=== PATIENT | male | born 2000 | race Caucasian/White ===

== ENCOUNTER 2018-08-09 10:00 | Outpatient (RCR) | payer BC, SELFPAY ==
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
== END 2018-08-09 10:05 | disposition home or self-care (01) ==
LOC: PT 10:00
PROVIDERS: Visit Provider Family Medicine
DX: M77.12 Lateral epicondylitis, left elbow (principal)
CPT/HCPCS: 97010; 97014; 97033; 97035; 97110; 97140; 97163; G0283

== ENCOUNTER 2018-09-12 09:00 | Outpatient (RCR) | payer BC, SELFPAY | END 2018-09-12 09:05 | disposition home or self-care (01) | LOC: PT 09:00 | PROVIDERS: Visit Provider Family Medicine Sports Medicine | DX: M77.50 Other enthesopathy of unspecified foot and ankle (principal) | CPT/HCPCS: 97010; 97014; 97110; 97112; 97140; 97163; G0283 ==

== ENCOUNTER → 2018-11-12 08:32 | Outpatient (CLI) | payer BC, SELFPAY ==
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
--- NOTE | 2018-11-12 08:41 | XR_ITS ---
XR wrist RT min 3V HISTORY pain following injury ITS.REASON: INJURY OF RT WRIST ORDERING PHYSICIAN: Xenia Moran APRN PATIENT AGE: 18 years Comparison: None FINDINGS: No fracture or dislocation. No lytic or blastic change. There is normal mineralization.. The joint spaces are well-preserved. No significant degenerative/arthritic changes. No erosive changes evident.. IMPRESSION: Negative wrist
== END ==
PROVIDERS: PCP Nurse Practitioner Family; Visit Provider Nurse Practitioner Family
DX: S69.92XA Unspecified injury of left wrist, hand and finger(s), initial encounter (principal); S69.91XA Unspecified injury of right wrist, hand and finger(s), initial encounter
CPT/HCPCS: 73110

== ENCOUNTER → 2019-12-11 10:46 | Outpatient (CLI) | payer BC, SELFPAY ==
--- NOTE | 2019-12-11 10:53 | US_ITS ---
PROCEDURE: US PELVIC CLINICAL INDICATION: Right groin pain COMPARISON: No exams were available for comparison FINDINGS: There is no hernia, masses or fluid collections are noted. There are 17 millimeter x 4 millimeter X 11 millimeter, 15 millimeter X 4 millimeter X 12 millimeter, and 16 millimeter x 5 millimeter x 8 millimeter right inguinal lymph nodes. IMPRESSION: Right inguinal lymph nodes Dictated by: Maximo Gill 12/11/2019 11:26 Electronically signed by Maximo Gill in [place] 12/11/2019 11:26
== END ==
LOC: RAD 10:47
PROVIDERS: PCP Nurse Practitioner Family; Visit Provider Nurse Practitioner
DX: K40.20 Bilateral inguinal hernia, without obstruction or gangrene, not specified as recurrent (principal)
CPT/HCPCS: 76856